=== PATIENT | male | born 1995 | race African-American/Black ===

== ENCOUNTER 2019-12-29 18:44 | Emergency (ER) | payer OTHER ==
[~2019-12-29] VITALS: Ht 177.8 cm; Wt 88.6 kg
--- NOTE | 2019-12-29 19:36 | REP ---
Right hand four views: There are radiopaque foreign bodies in the soft tissues lateral to the index finger MCP articulation. There is no fracture or dislocation. Mineralization and joint spaces are normal. Impression: Foreign bodies as described. Electronically Signed by Armand Cordova MD 12/29/2019 07:28 P
[2019-12-29 20:59] VITALS: BP 129/76
== END 2019-12-29 21:00 | disposition home or self-care (01) ==
LOC: M ED 18:44
DX: S67.01XA Crushing injury of right thumb, initial encounter (principal); W23.1XXA Caught, crushed, jammed, or pinched between stationary objects, initial encounter; Y92.89 Other specified places as the place of occurrence of the external cause; Y93.89 Activity, other specified; Y99.8 Other external cause status

== ENCOUNTER 2020-05-02 15:18 | Emergency (ER) | payer OTHER ==
[~2020-05-02] VITALS: Ht 175.3 cm; Wt 82.3 kg
[2020-05-02] MEDS ORDERED: KETOROLAC 60MG 2ML VIAL IM ONE (17:00)
[2020-05-02] MEDS ORDERED: KETO10TAB PO (17:24)
[2020-05-02 17:37] VITALS: BP 129/59
== END 2020-05-02 17:39 | disposition home or self-care (01) ==
LOC: M ED 15:18
DX: M51.37 Other intervertebral disc degeneration, lumbosacral region (principal); M54.32 Sciatica, left side; M54.31 Sciatica, right side; Z90.89 Acquired absence of other organs
CPT/HCPCS: 96372; 99283; J1885